=== PATIENT | female | born 1955 | race Asian ===

== ENCOUNTER 2017-05-06 23:43 | Emergency (ER) | payer BC, OTHER ==
[2017-05-06 23:53] VITALS: TEMP 98.1; O2SAT 95
[2017-05-07] MEDS ORDERED: diphenhydrAMINE 25 MG CAP PO ONE (00:13)
[2017-05-07] MEDS ORDERED: predniSONE 20 MG TAB PO ONE (00:26)
--- NOTE | 2017-05-07 00:27 | EDPHY ---
H & P Stated Complaint: pt was stung on her left eyebrow by a bee @1600, swelling Time Seen by Provider: 05/07/17 00:23 HPI/ROS: Chief Complaint: Bee sting HPI: 61-year-old woman was stung above her left eye by a bee or a wasp at about 4 o'clock this afternoon. Over the course of the evening she has had worsening swelling around her left eye and her left cheek. Has not had any redness. Has had similar episodes in the past. She did take 25 mg of Benadryl and 20 mg of prednisone. Has not had any shortness of breath. No rash, itching or hives. No palpitations. No chest pain. ROS: 10 point Review of Systems is negative except as noted in the HPI. PMH: Denies Social History: No smoking, no alcohol, no recreational drug use Family History: non-contributory Physical Exam: Gen: Awake, Alert, No Distress HEENT: She has got moderate swelling in the left periorbital region and left cheek. There is no erythema. Is not warm to touch. Nose: no rhinorrhea Eyes: PERRLA, EOMI Mouth: Moist mucosa no edema, uvula is normal, all structures appear normal and symmetrical. Neck: Supple, no JVD Chest: nontender, lungs clear to auscultation Heart: S1, S2 normal, no murmur Abd: Soft, non-tender, no guarding Back: no CVA tenderness, no midline tenderness Ext: no edema, non-tender Skin: no rash Neuro: CN II-XII intact, Sensation grossly intact, Strength 5/5 in bilateral upper and lower extremities - Personal History Current Tetanus Diphtheria and Acellular Pertussis (TDAP): Yes Tetanus Vaccine Date: 2011 - Medical/Surgical History Hx Asthma: No Hx Chronic Respiratory Disease: No Hx Diabetes: No Hx Cardiac Disease: No Hx Renal Disease: No Hx Cirrhosis: No Hx Alcoholism: No Hx HIV/AIDS: No Hx Splenectomy or Spleen Trauma: No Other PMH: hypothyroid, knee arthroscopic surgery - Social History Smoking Status: Never smoked Constitutional: Initial Vital Signs Temperature (C) 36.7 C 05/06/17 23:47 Heart Rate 99 05/06/17 23:47 Respiratory Rate 20 05/06/17 23:47 Blood Pressure 107/73 05/06/17 23:47 O2 Sat (%) 95 05/06/17 23:47 O2 Delivery Mode Room Air Allergies/Adverse Reactions: No Known Allergies Allergy (Unverified 05/06/17 23:46) Home Medications: Medication Instructions Recorded Aspirin 05/06/17 Unknown Thyroid Medication 05/06/17 predniSONE 60 mg PO DAILY #9 tab 05/07/17 Medical Decision Making ED Course/Re-evaluation: 7-year-old woman with localized reaction secondary to bee sting. Symptoms developed over the course of several hours. There is no evidence of acute anaphylactic reaction at this time. She has been taking Benadryl and prednisone. I have given her appropriate dosing here. She has been observed has had no significant worsening of her symptoms. She will be discharged continuing Benadryl and a 3 days of prednisone prescription. She will follow up with primary care physician will reach she returns to [facility] tomorrow. - Data Points Medications Given: Discontinued Medications Diphenhydramine HCl (Benadryl) 25 mg PO EDNOW ONE Stop: 05/07/17 00:14 Last Admin: 05/07/17 00:15 Dose: 25 mg Prednisone (Prednisone) 40 mg PO EDNOW ONE Stop: 05/07/17 00:27 Last Admin: 05/07/17 00:30 Dose: 40 mg Departure - Departure Disposition: Home, Routine, Self-Care Clinical Impression: Bee sting reaction Condition: Good Instructions: Insect Bite or Sting (ED) Additional Instructions: Continue taking prednisone daily for the next 3 days. You may take Benadryl 50 mg every 4-6 hours. Follow up with your primary care physician in 1-2 days for further evaluation. Return to the emergency department for increasing swelling, difficulty breathing , fevers, chills, or any other concerns. Referrals: [facility] [Other] - As per Instructions Prescriptions: predniSONE 60 mg PO DAILY #9 tab
[2017-05-07 01:27] VITALS: RESP 16
[2017-05-07 02:13] VITALS: BP 130/91; PULSE 83
== END 2017-05-07 02:12 | disposition home or self-care (01) ==
DX: T63.441A Toxic effect of venom of bees, accidental (unintentional), initial encounter (principal)